=== PATIENT | male | born 1975 | race Caucasian/White ===

== ENCOUNTER 2022-11-23 22:21 | Inpatient (IN) | payer MEDICAID ==
[~2022-11-23] VITALS: Ht 154.9 cm; Wt 66.3 kg
[2022-11-23] MEDS ORDERED: VISCOUS LIDOCAINE 2% 15 ML UDC PO STA (23:11)
[2022-11-23] MEDS ORDERED: HYDROCODONE/ACETAMINOPHEN 5/325MG TABLET PO STA (23:11)
[2022-11-23] MEDS ORDERED: MAGNESIUM/ALUMINUM HYDROXIDE/SIMETHICONE 30ML UDC PO STA (23:11)
[2022-11-24 00:11] LABS: BASOPHILS % 1.4 % (0.0-2.0); EOSINOPHILS % 2.2 % (0.0-5.0); HEMOGLOBIN. 12.5 g/dL (14.0-18.0); LYMPHOCYTES % 17.6 % (20.0-50.0); MEAN CORPUSCULAR HEMOGLOBIN 29.8 pg (28.0-32.0); MEAN CORPUSCULAR VOLUME 88.3 fL (80.0-94.0); MEAN PLATELET VOLUME 7.2 fl (7.4-10.4); MONOCYTES % 5.1 % (2.0-8.0); NEUTROPHILS % 73.7 % (40.0-76.0); PLATELET 484 x1000/uL (130-400); RED BLOOD CELL COUNT 4.19 mill/uL (4.7-6.1); RED CELL DISTRIBUTION WIDTH 15.1 % (11.6-14.6)
[2022-11-24 00:15] LABS: CHLORIDE 116 mEq/L (98-107)
[2022-11-24 00:19] LABS: PROTHROMBIN TIME 10.4 sec (9.6-11.0)
[2022-11-24 00:27] LABS: ETHANOL BLOOD < 10 mg/dL
[2022-11-24] MEDS ORDERED: SODIUM CHLORIDE 0.9% 1000ML BAG (SEPSIS BOLUS) IV ONE (00:45)
[2022-11-24] MEDS ORDERED: METRONIDAZOLE 500 MG PREMIX 100 ML IV NR (00:45)
[2022-11-24] MEDS ORDERED: HYDRALAZINE 20MG/ML VIAL IV NR (00:45)
[2022-11-24] MEDS ORDERED: CEFTRIAXONE 1 G PREMIX 50 ML IV NR (00:45)
[2022-11-24] MEDS ORDERED: ALBUMIN HUMAN 12.5GM/50ML (25%) IV NR (02:15)
[2022-11-24] MEDS: FAMOTIDINE 20MG TABLET PO SCH ×2 (02:25→23:30)
[2022-11-24] MEDS ORDERED: VISCOUS LIDOCAINE 2% 15 ML UDC PO NR (02:30)
[2022-11-24] MEDS ORDERED: MAGNESIUM/ALUMINUM HYDROXIDE/SIMETHICONE 30ML UDC PO NR (02:30)
[2022-11-24] MEDS ORDERED: HYDROCODONE/ACETAMINOPHEN 5/325MG TABLET PO NR (02:30)
[2022-11-24 02:35] LABS: BG BASE EXCESS -10.5 mmol/L (-2.0-2.0); BG CARBOXYHEMOGLOBIN 0.3 % (0.5-1.5); BG DEOXYHEMOGLOBIN 3.4 % (0.0-5.0); BG FRACTION INSPIRED OXYGEN 21; BG HCO3 ACT 14.3 mmol/L (22.0-26.0); BG METHEMOGLOBIN 0.2 % (0.0-1.5); BG OXYGEN SATURATION 96.6 % (92.0-98.5); BG OXYHEMOGLOBIN 96.1 % (94.0-97.0); BG PCO2 28.5 mmHg (35.0-45.0); BG PH 7.317 (7.350-7.450); BG PO2 88.1 mmHg (75.0-100.0); BG SAMPLE SITE RIGHT RADIAL; BG TOTAL HEMOGLOBIN 12.3 g/dL (12.0-18.0); BG VENT MODE ROOM AIR
[2022-11-24 02:36] LABS: CLARITY URINE CLOUDY (CLEAR); COLOR URINE YELLOW (YELLOW); KETONES URINE TRACE (NEGATIVE); LEUKOCYTE ESTERASE URINE TRACE (NEGATIVE); NITRITE URINE NEGATIVE (NEGATIVE); OCCULT BLOOD URINE 2+ (NEGATIVE); PROTEIN URINE 4+ (NEGATIVE); SPECIFIC GRAVITY URINE 1.021 (1.005-1.030); UROBILINOGEN URINE 0.2 E.U./dL (0.2-1.0)
[2022-11-24 03:07] LABS: *AMPHETAMINES SCREEN URINE NEGATIVE (NEGATIVE); *BARBITURATES SCREEN URINE NEGATIVE (NEGATIVE); *BENZODIAZEPINES SCREEN URINE NEGATIVE (NEGATIVE); *COCAINE SCREEN URINE NEGATIVE (NEGATIVE); CANNABINOID URINE SCREEN NEGATIVE (NEGATIVE); METHADONE URINE SCREEN NEGATIVE (NEGATIVE); OPIATES URINE SCREEN NEGATIVE (NEGATIVE); PHENCYCLIDINE URINE SCREEN NEGATIVE (NEGATIVE)
[2022-11-24] MEDS ORDERED: NA PHOS,M-B/NA PHOS,DI-BA ENEMA 118ML PR PRN (09:00)
[2022-11-24] MEDS ORDERED: MAGNESIUM/ALUMINUM HYDROXIDE/SIMETHICONE 30ML UDC PO PRN (09:00)
[2022-11-24] MEDS ORDERED: IPRATROPIUM/ALBUTEROL 0.5-3(2.5)MG/3ML NEB HHN PRN (09:00)
[2022-11-24] MEDS: HEPARIN 5000 UNITS/ML VIAL SUBCUT SCH ×2 (09:00→23:31)
[2022-11-24] MEDS ORDERED: ACETAMINOPHEN 325MG TABLET PO PRN ×2 (09:00)
[2022-11-24] MEDS ORDERED: ONDANSETRON HCL 4MG/2ML INJ IV PRN (09:00)
[2022-11-24] MEDS ORDERED: GUAIFENESIN 200MG/10ML SUGAR FREE UDC PO PRN (09:00)
[2022-11-24] MEDS: INSULIN LISPRO 100 UNITS/ML SUBCUT SCH ×6 (09:15→23:32)
[2022-11-24] MEDS: AMLODIPINE 10MG TABLET PO SCH (09:15)
[2022-11-24] MEDS ORDERED: NALOXONE HCL 0.4MG/ML VIAL IV PRN (09:15)
[2022-11-24] MEDS ORDERED: SODIUM CHLORIDE 0.45% 1,000 ML IV ONE (10:00)
[2022-11-24] MEDS: PANTOPRAZOLE 40MG DR TABLET PO SCH (10:26)
[2022-11-24] MEDS: HYDROCODONE/ACETAMINOPHEN 5/325MG TABLET PO PRN (11:11)
[2022-11-24] MEDS: BLOOD SUGAR DIAGNOSTIC STRIP TEST SCH ×3 (11:30→21:00)
[2022-11-24 11:43] LABS: D-DIMER 2.65 mg/L FEU (<0.50); PARTIAL THROMBOPLASTIN TIME 36.7 sec (23.4-31.0); PROTHROMBIN TIME 10.4 sec (9.6-11.0)
[2022-11-24 12:11] LABS: VITAMIN B12 SERUM 600 pg/mL (211-911)
[2022-11-24 13:17] LABS: T4 FREE 1.06 ng/dL (0.76-1.46)
[2022-11-24 15:01] LABS: FERRITIN 293 ng/mL (22-322)
[2022-11-24 17:08] LABS: HEPATITIS B SURFACE ANTIGEN NEGATIVE
[2022-11-24 19:00] VITALS: BP 130/89
[2022-11-24 22:06] VITALS: BP 151/80
[2022-11-24] MEDS: ATORVASTATIN CALCIUM 40MG TABLET PO SCH (23:30)
[2022-11-24] MEDS: INSULIN GLARGINE 100 UNITS/ML SUBCUT SCH (23:33)
[2022-11-25] VITALS: BP 150/94
[2022-11-25 04:00] VITALS: BP 174/95
[2022-11-25] MEDS: PANTOPRAZOLE 40MG DR TABLET PO SCH (06:28)
[2022-11-25] MEDS: CLONIDINE 0.1MG TABLET PO PRN (06:28)
[2022-11-25] MEDS: BLOOD SUGAR DIAGNOSTIC STRIP TEST SCH ×4 (06:28→21:00)
[2022-11-25] MEDS: INSULIN LISPRO 100 UNITS/ML SUBCUT SCH ×6 (06:29→22:18)
[2022-11-25 06:45] LABS: HEMATOCRIT 34.2 % (42.0-52.0); HEMOGLOBIN 11.5 g/dL (14.0-18.0); MEAN CORPUSCULAR HEMOGLOBIN 29.8 pg (28.0-32.0); MEAN CORPUSCULAR VOLUME 88.3 fL (80.0-94.0); PLATELET 464 x1000/uL (130-400); RED BLOOD CELL COUNT 3.88 mill/uL (4.7-6.1); RED CELL DISTRIBUTION WIDTH 15.2 % (11.6-14.6)
[2022-11-25 08:00] VITALS: BP 172/102
[2022-11-25] MEDS: AMLODIPINE 10MG TABLET PO SCH (08:07)
[2022-11-25] MEDS: HEPARIN 5000 UNITS/ML VIAL SUBCUT SCH ×2 (08:08→22:16)
[2022-11-25] MEDS: FUROSEMIDE 20MG/2ML VIAL IVP SCH (08:08)
[2022-11-25] MEDS ORDERED: LISINOPRIL 10MG TABLET PO SCH (09:00)
[2022-11-25] MEDS: DEXTROSE 50% WATER 50ML SYRINGE IV PRN (11:55)
[2022-11-25 12:00] VITALS: BP 152/97
[2022-11-25 16:00] VITALS: BP 153/93
[2022-11-25 16:34] LABS: HEPATITIS B SURFACE ANTIGEN NEGATIVE
[2022-11-25] MEDS: HYDRALAZINE HCL 50MG TABLET PO SCH ×2 (17:00→22:16)
[2022-11-25 20:00] VITALS: BP 157/98
[2022-11-25] MEDS: ATORVASTATIN CALCIUM 40MG TABLET PO SCH (22:16)
[2022-11-25] MEDS: LISINOPRIL 10MG TABLET PO SCH (22:17)
[2022-11-25] MEDS: INSULIN GLARGINE 100 UNITS/ML SUBCUT SCH (22:18)
[2022-11-26] VITALS (7 sets, daily range): BP systolic 142–180; BP diastolic 76–107
[2022-11-26] MEDS: CLONIDINE 0.1MG TABLET PO PRN ×2 (01:04→06:50)
[2022-11-26] MEDS: DEXTROSE 50% WATER 50ML SYRINGE IV PRN (06:32)
[2022-11-26] MEDS: BLOOD SUGAR DIAGNOSTIC STRIP TEST SCH ×4 (06:49→21:30)
[2022-11-26] MEDS: HYDRALAZINE HCL 50MG TABLET PO SCH ×3 (06:50→22:59)
[2022-11-26] MEDS: HYDROCODONE/ACETAMINOPHEN 5/325MG TABLET PO PRN (06:55)
[2022-11-26 07:10] LABS: HEMATOCRIT 31.1 % (42.0-52.0); HEMOGLOBIN 10.6 g/dL (14.0-18.0); MEAN CORPUSCULAR HEMOGLOBIN 29.9 pg (28.0-32.0); MEAN CORPUSCULAR VOLUME 87.8 fL (80.0-94.0); PLATELET 446 x1000/uL (130-400); RED BLOOD CELL COUNT 3.54 mill/uL (4.7-6.1); RED CELL DISTRIBUTION WIDTH 14.8 % (11.6-14.6)
[2022-11-26] MEDS: INSULIN LISPRO 100 UNITS/ML SUBCUT SCH ×4 (07:20→21:00)
[2022-11-26 07:37] LABS: PHOSPHORUS 5.9 mg/dL (2.5-4.9)
[2022-11-26] MEDS: FUROSEMIDE 20MG/2ML VIAL IVP SCH (09:00)
[2022-11-26] MEDS: HEPARIN 5000 UNITS/ML VIAL SUBCUT SCH ×2 (09:49→21:22)
[2022-11-26] MEDS: AMLODIPINE 10MG TABLET PO SCH (09:50)
[2022-11-26] MEDS: LISINOPRIL 10MG TABLET PO SCH ×2 (09:50→21:21)
[2022-11-26] MEDS: DOCUSATE SODIUM 100MG CAPSULE PO PRN (09:50)
[2022-11-26] MEDS: FAMOTIDINE 20MG TABLET PO SCH (09:50)
[2022-11-26] MEDS ORDERED: POTASSIUM CHLORIDE 20MEQ TABLET SR PO NR (10:00)
[2022-11-26 17:10] LABS: ANTI-NUCLEAR ANTIBODIES DIRECT Negative (Negative)
[2022-11-26] MEDS: ATORVASTATIN CALCIUM 40MG TABLET PO SCH (21:21)
[2022-11-26] MEDS: INSULIN GLARGINE 100 UNITS/ML SUBCUT SCH (21:30)
[2022-11-27 02:00] VITALS: BP 181/105
[2022-11-27] MEDS: CLONIDINE 0.1MG TABLET PO PRN (02:06)
[2022-11-27] MEDS: SPIRONOLACTONE 50MG TABLET PO SCH ×3 (02:06→17:26)
[2022-11-27 04:00] VITALS: BP 181/104
[2022-11-27] MEDS: HYDRALAZINE HCL 50MG TABLET PO SCH ×3 (06:23→21:38)
[2022-11-27] MEDS: BLOOD SUGAR DIAGNOSTIC STRIP TEST SCH ×4 (06:23→20:32)
[2022-11-27] MEDS: HYDROCODONE/ACETAMINOPHEN 5/325MG TABLET PO PRN (06:26)
[2022-11-27] MEDS: FAMOTIDINE 20MG TABLET PO SCH (07:52)
[2022-11-27] MEDS: HEPARIN 5000 UNITS/ML VIAL SUBCUT SCH ×2 (07:52→20:48)
[2022-11-27] MEDS: DOCUSATE SODIUM 100MG CAPSULE PO PRN (07:52)
[2022-11-27] MEDS: FUROSEMIDE 20MG/2ML VIAL IVP SCH (07:52)
[2022-11-27] MEDS: AMLODIPINE 10MG TABLET PO SCH (07:59)
[2022-11-27 08:00] VITALS: BP 160/92
[2022-11-27] MEDS: LISINOPRIL 10MG TABLET PO SCH ×2 (08:00→20:44)
[2022-11-27] MEDS: INSULIN LISPRO 100 UNITS/ML SUBCUT SCH ×4 (08:03→20:53)
[2022-11-27] MEDS ORDERED: POTASSIUM CHLORIDE 20MEQ TABLET SR PO NR (09:45)
[2022-11-27 12:18] VITALS: BP 151/97
[2022-11-27 16:04] VITALS: BP 158/92
[2022-11-27 20:00] VITALS: BP 170/89
[2022-11-27] MEDS: ATORVASTATIN CALCIUM 40MG TABLET PO SCH (20:45)
[2022-11-27] MEDS: INSULIN GLARGINE 100 UNITS/ML SUBCUT SCH (21:37)
[2022-11-28] VITALS: BP 175/96
[2022-11-28] MEDS: CLONIDINE 0.1MG TABLET PO PRN (00:31)
[2022-11-28 04:00] VITALS: BP 151/83
[2022-11-28 05:58] LABS: HEMATOCRIT 30.7 % (42.0-52.0); HEMOGLOBIN 10.5 g/dL (14.0-18.0); MEAN CORPUSCULAR HEMOGLOBIN 29.9 pg (28.0-32.0); MEAN CORPUSCULAR VOLUME 87.2 fL (80.0-94.0); PLATELET 471 x1000/uL (130-400); RED BLOOD CELL COUNT 3.52 mill/uL (4.7-6.1); RED CELL DISTRIBUTION WIDTH 14.9 % (11.6-14.6)
[2022-11-28] MEDS: DEXTROSE 50% WATER 50ML SYRINGE IV PRN (06:07)
[2022-11-28] MEDS: BLOOD SUGAR DIAGNOSTIC STRIP TEST SCH ×4 (06:07→21:23)
[2022-11-28] MEDS: HYDRALAZINE HCL 50MG TABLET PO SCH ×3 (06:14→22:25)
[2022-11-28 06:16] LABS: PHOSPHORUS 4.8 mg/dL (2.5-4.9)
[2022-11-28] MEDS: INSULIN LISPRO 100 UNITS/ML SUBCUT SCH ×4 (07:19→21:00)
[2022-11-28 07:45] VITALS: BP 165/95
[2022-11-28] MEDS: LISINOPRIL 10MG TABLET PO SCH ×2 (08:15→21:31)
[2022-11-28] MEDS: AMLODIPINE 10MG TABLET PO SCH (08:15)
[2022-11-28] MEDS: SPIRONOLACTONE 25MG TABLET PO SCH ×2 (08:15→17:08)
[2022-11-28] MEDS: FUROSEMIDE 20MG/2ML VIAL IVP SCH (08:15)
[2022-11-28] MEDS: FAMOTIDINE 20MG TABLET PO SCH (08:15)
[2022-11-28] MEDS: HEPARIN 5000 UNITS/ML VIAL SUBCUT SCH ×2 (08:16→21:32)
[2022-11-28] MEDS ORDERED: POTASSIUM CHLORIDE INJ 40 MEQ in DEXT 5% WATER 500 ML IV NR (10:00)
[2022-11-28 12:00] VITALS: BP 158/86
[2022-11-28 16:00] VITALS: BP 152/86
[2022-11-28] MEDS: SODIUM CHLORIDE 0.9% 1,000 ML IV SCH (17:03)
[2022-11-28] MEDS: METRONIDAZOLE 500 MG PREMIX 100 ML IV SCH (17:04)
[2022-11-28] MEDS: CEFTRIAXONE 1,000 MG in DEXTROSE 5% WATER 50 ML IV SCH (17:04)
[2022-11-28] MEDS: HYDROCODONE/ACETAMINOPHEN 5/325MG TABLET PO PRN ×2 (19:37→21:34)
[2022-11-28 20:00] VITALS: BP 152/85
[2022-11-28] MEDS: ATORVASTATIN CALCIUM 40MG TABLET PO SCH (21:31)
[2022-11-29] VITALS: BP 142/80
[2022-11-29] MEDS: SODIUM CHLORIDE 0.9% 1,000 ML IV SCH ×3 (01:17→22:49)
[2022-11-29] MEDS: METRONIDAZOLE 500 MG PREMIX 100 ML IV SCH ×3 (02:28→17:48)
[2022-11-29 04:00] VITALS: BP 163/88
[2022-11-29 06:45] LABS: HEMATOCRIT 32.8 % (42.0-52.0); HEMOGLOBIN 11.1 g/dL (14.0-18.0); MEAN CORPUSCULAR HEMOGLOBIN 29.8 pg (28.0-32.0); MEAN CORPUSCULAR VOLUME 87.6 fL (80.0-94.0); PLATELET 472 x1000/uL (130-400); RED BLOOD CELL COUNT 3.74 mill/uL (4.7-6.1); RED CELL DISTRIBUTION WIDTH 15.3 % (11.6-14.6)
[2022-11-29] MEDS: HYDRALAZINE HCL 50MG TABLET PO SCH ×3 (06:54→22:48)
[2022-11-29] MEDS: BLOOD SUGAR DIAGNOSTIC STRIP TEST SCH ×4 (06:56→20:54)
[2022-11-29] MEDS: INSULIN LISPRO 100 UNITS/ML SUBCUT SCH ×4 (06:56→21:00)
[2022-11-29 07:13] LABS: HIV SCREEN 4G Non Reactive (Non Reactive)
[2022-11-29 08:00] VITALS: BP 140/82
[2022-11-29] MEDS: FUROSEMIDE 20MG/2ML VIAL IVP SCH (09:00)
[2022-11-29] MEDS: AMLODIPINE 10MG TABLET PO SCH (09:06)
[2022-11-29] MEDS: FAMOTIDINE 20MG TABLET PO SCH (09:06)
[2022-11-29] MEDS: HEPARIN 5000 UNITS/ML VIAL SUBCUT SCH ×2 (09:06→20:46)
[2022-11-29] MEDS: SPIRONOLACTONE 50MG TABLET PO SCH ×2 (09:06→20:45)
[2022-11-29] MEDS: LISINOPRIL 10MG TABLET PO SCH (09:06)
[2022-11-29] MEDS: LISINOPRIL 20MG TABLET PO SCH ×2 (09:30→22:49)
[2022-11-29 12:00] VITALS: BP 146/84
[2022-11-29 13:11] LABS: *CREATININE RANDOM URINE 38.5 mg/dL (Not Estab.); MICROALBUMIN RANDOM URINE 3364.8 ug/mL (Not Estab.)
[2022-11-29 16:00] VITALS: BP 148/86
[2022-11-29] MEDS: CEFTRIAXONE 1,000 MG in DEXTROSE 5% WATER 50 ML IV SCH (17:48)
[2022-11-29 20:00] VITALS: BP 142/80
[2022-11-29] MEDS: ATORVASTATIN CALCIUM 40MG TABLET PO SCH (20:45)
[2022-11-30] VITALS: BP 143/94
[2022-11-30] MEDS: METRONIDAZOLE 500 MG PREMIX 100 ML IV SCH ×2 (01:58→09:22)
[2022-11-30 04:00] VITALS: BP 167/97
[2022-11-30] MEDS ORDERED: HYDROCODONE/ACETAMINOPHEN 5/325MG TABLET PO PRN (04:30)
[2022-11-30] MEDS: HYDRALAZINE HCL 50MG TABLET PO SCH ×3 (06:08→21:00)
[2022-11-30 06:10] LABS: BASOPHILS % 1.2 % (0.0-2.0); HEMATOCRIT. 32.3 % (42.0-52.0); LYMPHOCYTES % 17.2 % (20.0-50.0); MEAN CORPUSCULAR HEMOGLOBIN 29.8 pg (28.0-32.0); MEAN CORPUSCULAR VOLUME 87.9 fL (80.0-94.0); MEAN PLATELET VOLUME 6.8 fl (7.4-10.4); MONOCYTES % 6.4 % (2.0-8.0); NEUTROPHILS % 71.2 % (40.0-76.0); PLATELET 467 x1000/uL (130-400); RED BLOOD CELL COUNT 3.68 mill/uL (4.7-6.1); RED CELL DISTRIBUTION WIDTH 15.1 % (11.6-14.6)
[2022-11-30 06:43] LABS: CHLORIDE 115 mEq/L (98-107)
[2022-11-30 06:54] LABS: PHOSPHORUS 4.7 mg/dL (2.5-4.9)
[2022-11-30] MEDS: BLOOD SUGAR DIAGNOSTIC STRIP TEST SCH ×4 (07:09→20:55)
[2022-11-30] MEDS: INSULIN LISPRO 100 UNITS/ML SUBCUT SCH ×4 (07:10→20:57)
[2022-11-30 08:00] VITALS: BP 160/100
[2022-11-30] MEDS: FUROSEMIDE 20MG/2ML VIAL IVP SCH (09:00)
[2022-11-30] MEDS: LISINOPRIL 20MG TABLET PO SCH ×2 (09:16→20:59)
[2022-11-30] MEDS: FAMOTIDINE 20MG TABLET PO SCH (09:16)
[2022-11-30] MEDS: SODIUM CHLORIDE 0.9% 1,000 ML IV SCH ×2 (09:17→17:15)
[2022-11-30] MEDS: AMLODIPINE 10MG TABLET PO SCH (09:17)
[2022-11-30] MEDS: HEPARIN 5000 UNITS/ML VIAL SUBCUT SCH (09:17)
[2022-11-30] MEDS: SPIRONOLACTONE 50MG TABLET PO SCH ×2 (09:17→17:19)
[2022-11-30] MEDS ORDERED: NALOXONE HCL 0.4MG/ML VIAL IV PRN (09:45)
[2022-11-30 12:00] VITALS: BP 171/88
[2022-11-30] MEDS ORDERED: IPRATROPIUM BROMIDE (0.02%) 0.5MG/2.5ML NEB HHN PRN (12:30)
[2022-11-30] MEDS ORDERED: ALBUTEROL (0.083%) 2.5MG/3ML NEB HHN PRN (12:30)
[2022-11-30 13:10] LABS: MICROALBUMIN RANDOM URINE 3888.1 ug/mL (Not Estab.)
[2022-11-30 16:00] VITALS: BP 109/54
[2022-11-30] MEDS: METRONIDAZOLE 500MG TABLET PO SCH ×2 (16:00→23:47)
[2022-11-30] MEDS: CEFTRIAXONE 1,000 MG in DEXTROSE 5% WATER 50 ML IV SCH (17:19)
[2022-11-30 19:09] LABS: OVA & PARASITE EXAM Final report (.)
[2022-11-30 20:17] VITALS: BP 134/76
[2022-11-30] MEDS: ATORVASTATIN CALCIUM 40MG TABLET PO SCH (20:58)
[2022-12-01] VITALS (17 sets, daily range): BP systolic 122–168; BP diastolic 71–99
[2022-12-01] MEDS: SODIUM CHLORIDE 0.9% 1,000 ML IV SCH ×3 (03:32→17:48)
[2022-12-01] MEDS: CLONIDINE 0.1MG TABLET PO PRN (03:35)
[2022-12-01] MEDS: METRONIDAZOLE 500MG TABLET PO SCH ×3 (06:00→22:44)
[2022-12-01] MEDS: HYDRALAZINE HCL 50MG TABLET PO SCH (06:00)
[2022-12-01 06:51] LABS: BASOPHILS % 1.3 % (0.0-2.0); EOSINOPHILS % 4.2 % (0.0-5.0); HEMATOCRIT. 30.4 % (42.0-52.0); HEMOGLOBIN. 10.2 g/dL (14.0-18.0); LYMPHOCYTES % 19.4 % (20.0-50.0); MEAN CORPUSCULAR HEMOGLOBIN 29.7 pg (28.0-32.0); MEAN CORPUSCULAR VOLUME 88.2 fL (80.0-94.0); MEAN PLATELET VOLUME 7.4 fl (7.4-10.4); MONOCYTES % 7.4 % (2.0-8.0); NEUTROPHILS % 67.7 % (40.0-76.0); PLATELET 469 x1000/uL (130-400); RED BLOOD CELL COUNT 3.45 mill/uL (4.7-6.1); RED CELL DISTRIBUTION WIDTH 14.7 % (11.6-14.6)
[2022-12-01 06:58] LABS: PARTIAL THROMBOPLASTIN TIME 36.5 sec (23.4-31.0); PROTHROMBIN TIME 10.4 sec (9.6-11.0)
[2022-12-01 07:10] LABS: PHOSPHORUS 4.8 mg/dL (2.5-4.9)
[2022-12-01] MEDS: BLOOD SUGAR DIAGNOSTIC STRIP TEST SCH ×4 (07:10→20:49)
[2022-12-01] MEDS ORDERED: HYDRALAZINE 20MG/ML VIAL IV PRN (07:15)
[2022-12-01] MEDS: INSULIN LISPRO 100 UNITS/ML SUBCUT SCH ×4 (07:20→20:50)
[2022-12-01] MEDS: FUROSEMIDE 20MG/2ML VIAL IVP SCH (09:00)
[2022-12-01] MEDS: SPIRONOLACTONE 50MG TABLET PO SCH ×2 (09:06→17:48)
[2022-12-01] MEDS: AMLODIPINE 10MG TABLET PO SCH (09:06)
[2022-12-01] MEDS: LISINOPRIL 20MG TABLET PO SCH ×2 (09:06→20:44)
[2022-12-01] MEDS: FAMOTIDINE 20MG TABLET PO SCH (09:06)
[2022-12-01] MEDS ORDERED: MAGNESIUM 1 G PREMIX 100 ML IV NR (10:00)
[2022-12-01] MEDS ORDERED: FENTANYL CITRATE/PF 50MCG/ML 2ML VIAL ONE (10:32)
[2022-12-01] MEDS ORDERED: LIDOCAINE HCL 1% 10 MG/ML 10ML VIAL ONE ×2 (10:39→10:40)
[2022-12-01] MEDS ORDERED: SODIUM CHLORIDE 0.9% 10ML VIAL ONE (10:39)
[2022-12-01] MEDS ORDERED: SODIUM BICARBONATE 4% (2.4MEQ) 5ML VIAL IV ONE (10:40)
[2022-12-01] MEDS ORDERED: FENTANYL CITRATE/PF 50MCG/ML 2ML VIAL IV ONE (11:35)
[2022-12-01] MEDS: HYDRALAZINE HCL 25MG TABLET PO SCH ×2 (14:29→22:45)
[2022-12-01 15:38] LABS: HEMATOCRIT 31.7 % (42.0-52.0); HEMOGLOBIN 10.7 g/dL (14.0-18.0)
[2022-12-01 17:06] LABS: *HIV-1 RNA BY PCR <20 copies/mL (.)
[2022-12-01] MEDS: CEFTRIAXONE 1,000 MG in DEXTROSE 5% WATER 50 ML IV SCH (17:48)
[2022-12-01] MEDS: ATORVASTATIN CALCIUM 40MG TABLET PO SCH (20:45)
[2022-12-02] VITALS (7 sets, daily range): BP systolic 131–162; BP diastolic 75–108
[2022-12-02 05:41] LABS: BASOPHILS % 1.4 % (0.0-2.0); EOSINOPHILS % 3.8 % (0.0-5.0); HEMATOCRIT. 31.6 % (42.0-52.0); HEMOGLOBIN. 10.6 g/dL (14.0-18.0); LYMPHOCYTES % 21.7 % (20.0-50.0); MEAN CORPUSCULAR HEMOGLOBIN 29.8 pg (28.0-32.0); MEAN CORPUSCULAR VOLUME 88.5 fL (80.0-94.0); MEAN PLATELET VOLUME 6.8 fl (7.4-10.4); MONOCYTES % 7.6 % (2.0-8.0); NEUTROPHILS % 65.5 % (40.0-76.0); PLATELET 459 x1000/uL (130-400); RED BLOOD CELL COUNT 3.57 mill/uL (4.7-6.1); RED CELL DISTRIBUTION WIDTH 15.1 % (11.6-14.6)
[2022-12-02] MEDS: HYDRALAZINE HCL 25MG TABLET PO SCH ×3 (05:56→21:46)
[2022-12-02] MEDS: METRONIDAZOLE 500MG TABLET PO SCH ×3 (05:56→21:46)
[2022-12-02] MEDS: BLOOD SUGAR DIAGNOSTIC STRIP TEST SCH ×4 (06:06→21:27)
[2022-12-02] MEDS: INSULIN LISPRO 100 UNITS/ML SUBCUT SCH ×4 (07:20→21:40)
[2022-12-02] MEDS: FUROSEMIDE 20MG/2ML VIAL IVP SCH (08:44)
[2022-12-02] MEDS: FAMOTIDINE 20MG TABLET PO SCH (08:44)
[2022-12-02] MEDS: LISINOPRIL 20MG TABLET PO SCH ×2 (08:44→21:45)
[2022-12-02] MEDS: AMLODIPINE 10MG TABLET PO SCH (08:44)
[2022-12-02] MEDS: SPIRONOLACTONE 50MG TABLET PO SCH ×2 (08:45→21:47)
[2022-12-02] MEDS ORDERED: POLYMYXIN B SULFATE/TMP 10ML BOTTLE BOTHEYE SCH ×2 (12:00→20:00)
[2022-12-02] MEDS: CEFTRIAXONE 1,000 MG in DEXTROSE 5% WATER 50 ML IV SCH (17:54)
[2022-12-02] MEDS: ATORVASTATIN CALCIUM 40MG TABLET PO SCH (21:45)
[2022-12-03 04:48] VITALS: BP 153/86
[2022-12-03] MEDS: METRONIDAZOLE 500MG TABLET PO SCH (05:32)
[2022-12-03] MEDS: HYDRALAZINE HCL 25MG TABLET PO SCH (05:33)
[2022-12-03] MEDS: POLYMYXIN B SULFATE/TMP 10ML BOTTLE BOTHEYE SCH ×2 (05:33→08:40)
[2022-12-03 06:22] LABS: BASOPHILS % 1.6 % (0.0-2.0); EOSINOPHILS % 3.8 % (0.0-5.0); HEMATOCRIT. 31.8 % (42.0-52.0); HEMOGLOBIN. 10.9 g/dL (14.0-18.0); LYMPHOCYTES % 20.1 % (20.0-50.0); MEAN CORPUSCULAR HEMOGLOBIN 30.1 pg (28.0-32.0); MEAN CORPUSCULAR VOLUME 87.9 fL (80.0-94.0); MEAN PLATELET VOLUME 7.2 fl (7.4-10.4); MONOCYTES % 6.7 % (2.0-8.0); NEUTROPHILS % 67.8 % (40.0-76.0); PLATELET 472 x1000/uL (130-400); RED BLOOD CELL COUNT 3.62 mill/uL (4.7-6.1); RED CELL DISTRIBUTION WIDTH 15.1 % (11.6-14.6)
[2022-12-03] MEDS: BLOOD SUGAR DIAGNOSTIC STRIP TEST SCH (06:46)
[2022-12-03 08:00] VITALS: BP 154/102
[2022-12-03] MEDS: FUROSEMIDE 20MG/2ML VIAL IVP SCH (08:40)
[2022-12-03] MEDS: SPIRONOLACTONE 50MG TABLET PO SCH (08:42)
[2022-12-03] MEDS: AMLODIPINE 10MG TABLET PO SCH (08:43)
[2022-12-03] MEDS: FAMOTIDINE 20MG TABLET PO SCH (08:43)
[2022-12-03] MEDS: LISINOPRIL 20MG TABLET PO SCH (08:43)
[2022-12-03] MEDS: INSULIN LISPRO 100 UNITS/ML SUBCUT SCH (08:52)
[2022-12-03] MEDS: HEPARIN 5000 UNITS/ML VIAL SUBCUT SCH (09:26)
[2022-12-03 10:48] VITALS: BP 154/102
== END 2022-12-03 14:51 | disposition home or self-care (01) | DRG 249 ==
LOC: ER 22:21 → EDBEDREQ 11-24 02:28 → EDBEDREQSVC 11-24 02:28 → EDBEDREQTM 11-24 02:28 → MICUSO 11-24 03:53 → UNDOADMIN 11-24 03:53 → 3WST 11-24 19:22
PROVIDERS: ADMIT Internal Medicine; ATTEND Internal Medicine
PROC: 0TB13ZX Excision of Left Kidney, Percutaneous Approach, Diagnostic (ICD-10-PCS; principal; 2022-12-01)
DX: A08.4 Viral intestinal infection, unspecified (principal); E11.649 Type 2 diabetes mellitus with hypoglycemia without coma; E85.9 Amyloidosis, unspecified; N17.9 Acute kidney failure, unspecified; E83.39 Other disorders of phosphorus metabolism; E11.22 Type 2 diabetes mellitus with diabetic chronic kidney disease; A05.9 Bacterial foodborne intoxication, unspecified; I12.9 Hypertensive chronic kidney disease with stage 1 through stage 4 chronic kidney disease, or unspecified chronic kidney disease; E88.09 Other disorders of plasma-protein metabolism, not elsewhere classified; Z20.822 Contact with and (suspected) exposure to COVID-19; N18.9 Chronic kidney disease, unspecified; E78.5 Hyperlipidemia, unspecified; E78.00 Pure hypercholesterolemia, unspecified; E87.6 Hypokalemia; E87.70 Fluid overload, unspecified; T50.1X5A Adverse effect of loop [high-ceiling] diuretics, initial encounter; K76.0 Fatty (change of) liver, not elsewhere classified; E87.20 Acidosis, unspecified; N43.3 Hydrocele, unspecified; Z79.899 Other long term (current) drug therapy; Z86.16 Personal history of COVID-19; Z87.441 Personal history of nephrotic syndrome; Y92.89 Other specified places as the place of occurrence of the external cause
CPT/HCPCS: 36415; 36600; 71045; 74176; 76700; 76870; 76942; 80048; 80053; 80061; 80305; 80320; 81003; 82043; 82270; 82375; 82436; 82570; 82607; 82728; 82746; 82805; 82962; 83036; 83540; 83550; 83605; 83735; 83880; 84100; 84156; 84300; 84439; 84443; 84484; 84540; 85014; 85018; 85025; 85027; 85379; 85651; 86038; 86160; 86705; 86709; 86803; 87015; 87045; 87106; 87177; 87209; 87340; 87389; 87426; 87427; 87449; 87536; 88305; 88346; 88348; 89055; 93005; 93306; 93970; 93976; 99285; J0360; J0696; J1644; J1815; J1940; J3010; J3475; J3480; J3490; J7030; J7060; P9047; G0480